=== PATIENT | male | born 1980 | race African-American/Black ===

== ENCOUNTER 2017-08-14 20:12 | Emergency (ER) | payer OTHER ==
[~2017-08-14] VITALS: Ht 177.8 cm; Wt 80.0 kg
[~2017-08-14 20:12] MED LIST: LANTUSP SQ; LISI10 PO; METF850T PO; NOVOLOGP2 SC; [UNRECOGNIZED DRUG - SUPPLY]; glucometer; lancets
[2017-08-14 20:15] VITALS: BP 113/75; PULSE 100; RESP 16; TEMP 98.2; O2SAT 96
[2017-08-14] MEDS ORDERED: SODIUM CHLOR 0.9% 1000 ML INJ 1,000 ML IV ONE (23:30)
[2017-08-14] MEDS ORDERED: traMADol HCL 50 MG TAB PO ONE (23:30)
[2017-08-14] MEDS ORDERED: GABAPENTIN 300 MG CAP PO ONE (23:30)
[2017-08-15 00:21] LABS: AUTOMATED NEUTROPHIL # 2.1 TH/MM3 (1.8-7.7); BASOPHIL % 0.8 % (0.0-2.0); BLOOD, URINE NEG (NEG); COMMENT (UR) CULT NOT INDICATED; CULTURE IF INDICATED CULT NOT INDICATED; EOSINOPHIL # 0.1 TH/MM3 (0-0.4); EOSINOPHIL % 1.5 % (0.0-4.0); GLUCOSE,URINE 1000 mg/dL (NEG); HEMO FLAGS DIFF FINAL; KETONE, URINE TRACE mg/dL (NEG); LYMPH % 50.7 % (9.0-44.0); LYMPHOCYTE # 2.7 TH/MM3 (1.0-4.8); MEAN CELL VOLUME 86.5 FL (80.0-100.0); MEAN CORPUSCULAR HEMOGLOBIN 29.1 PG (27.0-34.0); MEAN CORPUSCULAR HGB CONC 33.6 % (32.0-36.0); MUCUS URINE FEW /lpf (OCC); NITRITE,URINE NEG (NEG); PLATELET COUNT 320 TH/MM3 (150-450); RED BLOOD COUNT 5.32 MIL/MM3 (4.50-5.90); RED CELL DISTRIBUTION WIDTH 12.3 % (11.6-17.2); URINE COLOR YELLOW (YELLW/STRAW); WHITE BLOOD COUNT 5.3 TH/MM3 (4.0-11.0)
[2017-08-15 00:33] VITALS: RESP 16
[2017-08-15 00:37] LABS: BETA-HYDROXYBUTYRATE 0.22 MMOL/L (0.00-0.39)
[2017-08-15 00:42] LABS: BICARBONATE 31.8 MEQ/L (21.0-32.0); POTASSIUM 3.8 MEQ/L (3.5-5.1)
[2017-08-15] MEDS ORDERED: METF500T PO (00:53)
[2017-08-15] MEDS ORDERED: GABA300C5 PO (00:53)
[2017-08-15] MEDS ORDERED: TRAM50TA PO (00:53)
--- NOTE | 2017-08-15 00:54 | PD ---
HPI Chief Complaint: Pain: Acute or Chronic Time Seen by Provider: 23:14 Travel History International Travel<30 days: No Contact w/Intl Traveler<30days: No Traveled to known affect area: No History of Present Illness HPI Patient is a 37-year-old male with history of diabetes who comes in complaining of nerve pain in his feet. He says he is not had diabetic medications in the past year. He says that he has been trying to control her sugars with his diet , because he cannot get into see a doctor. He says for the past several months he has had pain in his legs, he says it's a burning sensation. He says it is gotten worse, and now he cannot sleep. He denies any chest pain or shortness of breath. He denies any abdominal pain, nausea or vomiting. He denies any back pain. PFSH Past Medical History Cancer: No Cardiovascular Problems: No Diabetes: Yes Patient Takes Glucophage: No Diminished Hearing: No Endocrine: No Genitourinary: No Immune Disorder: No Musculoskeletal: No Neurologic: No Psychiatric: No Reproductive: No Respiratory: No Tetanus Vaccination: < 5 Years Past Surgical History Surgical History: No Previous Surgery Social History Alcohol Use: Yes (OCC) Tobacco Use: No Substance Use: No Allergies-Medications (Allergen,Severity, Reaction): Coded Allergies: animal dander (Unverified Allergy, Unknown, 08/15/17) Reported Meds & Prescriptions Reported Meds & Active Scripts Active Reported [lancets] [glucometer test] [glucometer] Novolog (Insulin Aspart) 100 Units/Ml Inj 5 Units SC TIDAC Lantus (Insulin Glargine) 100 Units/Ml Inj 25 SQ HS UNKNOWN DOSE Metformin Hcl (Metformin HCl) 850 Mg Tab 850 Mg PO BID Prinivil 10 Mg Tab (Lisinopril) 10 Mg Tab 10 Mg PO DAILY Review of Systems Except as stated in HPI: all other systems reviewed are Neg General / Constitutional: No: Fever, Chills HENT: No: Headaches, Lightheadedness Cardiovascular: No: Chest Pain or Discomfort Respiratory: No: Shortness of Breath Gastrointestinal: No: Nausea, Vomiting, Abdominal Pain Genitourinary: No: Dysuria Musculoskeletal: Positive: Pain Skin: No Rash, No Change in Pigmentation Neurologic: Positive: Paresthesia, No: Weakness, Dizziness Physical Exam Narrative GENERAL: Awake and alert, in no acute distress. SKIN: Focused skin assessment warm/dry. HEAD: Atraumatic. Normocephalic. EYES: Pupils equal and round. No scleral icterus. ENT: Mucous membranes pink and moist. NECK: Trachea midline. No JVD. CARDIOVASCULAR: Regular rate and rhythm. No murmur appreciated. RESPIRATORY: No accessory muscle use. Clear to auscultation. Breath sounds equal bilaterally. GASTROINTESTINAL: Abdomen soft, non-tender, nondistended. MUSCULOSKELETAL: No obvious deformities. No clubbing. No cyanosis. No edema. Pedal pulses intact. No wounds to the feet. No neurologic abnormalities to the feet. NEUROLOGICAL: Awake and alert. No obvious cranial nerve deficits. Motor grossly within normal limits. Normal speech. PSYCHIATRIC: Appropriate mood and affect; insight and judgment normal. Data Data Last Documented VS Vital Signs Date Time Temp Pulse Resp B/P (MAP) Pulse Ox O2 Delivery O2 Flow Rate FiO2 08/15/17 00:33 16 08/14/17 20:15 98.2 100 113/75 (88) 96 Room Air Orders Orders Iv Access Insert/Monitor (08/14/17 23:25) Complete Blood Count With Diff (08/14/17 23:25) Basic Metabolic Panel (Bmp) (08/14/17 23:25) Beta Hydroxybutyrate (Acetone) (08/14/17 23:25) Urinalysis - C+S If Indicated (08/14/17 23:25) Sodium Chlor 0.9% 1000 Ml Inj (Ns 1000 M (08/14/17 23:30) Tramadol (Ultram) (08/14/17 23:30) Gabapentin (Neurontin) (08/14/17 23:30) Labs Laboratory Tests Test 08/14/17 23:40 White Blood Count 5.3 TH/MM3 Red Blood Count 5.32 MIL/MM3 Hemoglobin 15.5 GM/DL Hematocrit 46.0 % Mean Corpuscular Volume 86.5 FL Mean Corpuscular Hemoglobin 29.1 PG Mean Corpuscular Hemoglobin Concent 33.6 % Red Cell Distribution Width 12.3 % Platelet Count 320 TH/MM3 Mean Platelet Volume 8.6 FL Neutrophils (%) (Auto) 40.0 % Lymphocytes (%) (Auto) 50.7 % Monocytes (%) (Auto) 7.0 % Eosinophils (%) (Auto) 1.5 % Basophils (%) (Auto) 0.8 % Neutrophils # (Auto) 2.1 TH/MM3 Lymphocytes # (Auto) 2.7 TH/MM3 Monocytes # (Auto) 0.4 TH/MM3 Eosinophils # (Auto) 0.1 TH/MM3 Basophils # (Auto) 0.0 TH/MM3 CBC Comment DIFF FINAL Differential Comment Urine Color YELLOW Urine Turbidity CLEAR Urine pH 6.0 Urine Specific [place] 1.035 Urine Protein TRACE mg/dL Urine Glucose (UA) 1000 mg/dL Urine Ketones TRACE mg/dL Urine Occult Blood NEG Urine Nitrite NEG Urine Bilirubin NEG Urine Urobilinogen 2.0 MG/DL Urine Leukocyte Esterase NEG Urine RBC LESS THAN 1 /hpf Urine WBC LESS THAN 1 /hpf Urine Mucus FEW /lpf Microscopic Urinalysis Comment CULT NOT INDICATED Blood Urea Nitrogen 8 MG/DL Creatinine 0.86 MG/DL Random Glucose 236 MG/DL Calcium Level 9.4 MG/DL Sodium Level 139 MEQ/L Potassium Level 3.8 MEQ/L Chloride Level 103 MEQ/L Carbon Dioxide Level 31.8 MEQ/L Anion Gap 4 MEQ/L Estimat Glomerular Filtration Rate 120 ML/MIN B-Hydroxybutyrate 0.22 MMOL/L [facility] Medical Decision Making Medical Screen Exam Complete: Yes Emergency Medical Condition: Yes Medical Record Reviewed: Yes Differential Diagnosis Hyperglycemia versus diabetic nerve pain versus dehydration Narrative Course Patient is a 37-year-old male who comes in complaining of pain in his legs. Exam shows no acute abnormalities. IV established, labs sent. Labs show a blood glucose of 236. Beta hydroxybutyrate is negative. Patient given IV fluids, tramadol, gabapentin. He says he was taking metformin. He'll be discharged with a 2 week prescription for metformin as well as gabapentin and tramadol. He is advised follow-up with a primary care doctor. He says he will call on Wednesday. Advised to return to the ED as needed for any worsening symptoms. Diagnosis Primary Impression: Hypoglycemia Additional Impression: Diabetic neuropathy Qualified Codes: E11.49 - Type 2 diabetes mellitus with other diabetic neurological complication Patient Instructions: Diabetic Peripheral Neuropathy (ED), General Instructions Additional Instructions: Taken her metformin daily. Follow-up with a primary care doctor. Take the gabapentin as prescribed and tramadol as needed for severe pain. Return to the ED as needed for any worsening symptoms. Scripts Tramadol (Tramadol) 50 Mg Tab 50 MG PO Q6H Y for PAIN, #10 TAB 0 Refills Prov: Brianna Dumont MD 08/15/17 Gabapentin (Gabapentin) 300 Mg Cap 300 MG PO BID, #30 CAP 0 Refills Prov: Brianna Dumont MD 08/15/17 Metformin (Metformin) 500 Mg Tab 500 MG PO DAILY for Blood Sugar Management, #14 TAB 0 Refills With a meal Prov: Brianna Dumont MD 08/15/17 Disposition: 01 DISCHARGE HOME Condition: Stable Brianna Dumont MD Aug 15, 2017 00:53
== END 2017-08-15 01:24 | disposition home or self-care (01) ==
LOC: NEPD 20:12
DX: E11.49 Type 2 diabetes mellitus with other diabetic neurological complication (principal); E16.2 Hypoglycemia, unspecified
CPT/HCPCS: 80048; 81001; 82010; 85025; 96360; 99284; J7030